=== PATIENT | male | born 1950 | race Caucasian/White ===

== ENCOUNTER 2017-12-03 11:05 | Inpatient (IN) ==
[2017-12-03] MEDS ORDERED: methylPREDNISolone 125 MG/2 ML VIAL IVP ONE (11:21)
[2017-12-03] MEDS ORDERED: Ipratropium/Albuterol Neb 3 ML IH ONE (11:21)
--- NOTE | 2017-12-03 11:27 | Emergency Department Note ---
Disposition Clinical Impression: Acute exacerbation of chronic obstructive airways disease, Hypercalcemia Disposition: Admitted As Inpatient Condition: Fair Referrals: Arvin Kang MD [Primary Care Provider] - Forms: ED Satisfaction Letter Time of Disposition: 14:18 SOB HPI - General Chief Complaint: ED Shortness of Breath/Dyspnea Stated Complaint: SHAHID Time Seen by Provider: 12/03/17 11:16 Source: patient Limitations: no limitations Nursing Notes Reviewed: Yes Vital Signs Reviewed: Yes - History of Present Illness 67-year-old with a history of lung cancer comes in with increasing shortness of breath. Patient also has generalized weakness and multiple falls over the weekend. I contacted the cancer Center who wanted to get a CT of his head and evaluated for shortness of breath. Concern for dehydration Pt Subjective Complaint: shortness of breath, cough Onset (ago): day(s) Context: recent illness Severity: moderate Consistency/Duration: constant Improves with: nothing Worsens with: exertion Known history of: COPD, other (Lung cancer) Associated symptoms: Reports: cough Treatment prior to arrival: none Cough Description: Involuntary Cough Frequency: Intermittent - Related Data Previous Rx's Medication Instructions Recorded Multivit-Min/Iron Fum/Folic AC 1 each PO DAILY #30 tablet 05/23/16 [Zpoqp-Sbsvdxl-Sbizcnlz Tablet] Famotidine [Pepcid] 40 mg PO HS #30 tablet 03/07/17 Magic Mouthwash [Magic Mouthwash 10 ml PO QID PRN #240 ml 03/14/17 BLM] Loperamide HCl [Imodium A-D] 2 mg PO Q8H PRN #90 tablet 05/29/17 Prochlorperazine Maleate 10 mg PO Q8HR PRN #90 tablet 05/30/17 [Compazine] Diaper,Brief,Adult, Disposable 1 each MC QID #1 pkg 06/21/17 [Depend Fit-Flex] Cane 1 each MC DAILY #1 each 07/12/17 DiphenhydraMINE [Benadryl] 25 mg PO HS #30 capsule 07/12/17 Albuterol Sulfate [Albuterol 1 puff IH BID PRN #1 inhaler 07/23/17 Inhaler] Ondansetron [Zofran] 8 mg PO Q8HR #60 tablet 09/18/17 Erlotinib HCl [Tarceva] 100 mg PO DAILY #30 tablet 09/28/17 Ascorbic Acid/Multivit-Min 1,000 mg PO AD PRN #30 effpowdpkt 10/11/17 [Emergen-C 1,000 mg Packet] GuaiFENesin ER [Mucinex] 600 mg PO BID #20 tbbp.12hr 10/26/17 ALPRAZolam [Xanax 1 MG Tablet] 2 mg PO BID PRN 30 Days #120 tablet 11/07/17 OxyCODONE Immed Rel [Roxicodone 10 10 mg PO TID 30 Days #90 tab 11/20/17 MG] Oxycodone HCl/Acetaminophen 1 each PO Q4H PRN 15 Days #90 11/21/17 [Percocet 10-325 mg Tablet] tablet Allergies Allergy/AdvReac Type Severity Reaction Status Date / Time codeine Allergy See Verified 12/03/17 11:11 Comments lorazepam [From Ativan] Allergy See Verified 12/03/17 11:11 Comments Constitutional: Denies: fever, chills, weakness, weight change Eyes: Denies: eye pain, eye discharge, vision change ENT ED: Denies: ear pain, throat pain, dental pain, hearing loss, epistaxis, congestion, dysphagia Cardiovascular: Denies: chest pain, palpitations, dyspnea on exertion, edema, syncope Respiratory: Reports: cough, dyspnea, wheezes. Denies: hemoptysis, stridor Gastrointestinal: Denies: abdominal pain, nausea, vomiting, diarrhea, constipation, hematemesis, melena, hematochezia Genitourinary: Denies: urgency, dysuria, frequency, hematuria Musculoskeletal: Denies: back pain, neck pain, arthralgia, myalgia Integumentary: Denies: rash, abrasion, lesions Neurological: Denies: headache, weakness, numbness, paresthesias, confusion, abnormal gait, vertigo Psychiatric: Denies: anxiety, depression, suicidal thoughts, homicidal thoughts , auditory hallucinations, visual hallucinations Endocrine: Denies: fatigue Hematological/Lymphatic: Denies: easy bleeding, easy bruising Allergic/Immunologic: Denies: facial swelling, urticaria Past Medical History - Past Medical History Medical history: Reports: cancer, COPD, coronary artery disease, hyperlipidemia , renal disease, other Surgical history: Reports: appendectomy, herniorrhaphy, other Psychiatric history: Reports: depression - Social History Smoking Status: Current every day smoker Smokeless Tobacco Status: No Alcohol use: Reports: none Drug use: Reports: none Physical Exam - General Limitations: no limitations General appearance: alert, in no apparent distress - Head Head exam: atraumatic, normocephalic, normal inspection - Eye Eye exam: Present: normal appearance, PERRL, EOMI - ENT ENT exam: normal exam, normal oropharynx, mucous membranes moist - Neck Neck exam: Present: normal inspection, full ROM, trachea midline - Chest Chest inspection: Present: normal inspection, symmetric chest wall rise - Respiratory Respiratory exam: Present: wheezes - Cardiovascular Cardiovascular exam: Present: tachycardia - Abdominal Exam Abdominal exam: Present: soft, Non-Tender. Absent: tenderness, distention, guarding, rebound, rigidity - Extremities Exam Extremities exam: Present: normal inspection, full ROM. Absent: tenderness, pedal edema - Expanded Lower Extremity Exam Neurovascular/Tendon exam: Absent: motor deficit, sensory deficit, tendon deficit Gait: observed and normal - Back Exam Back exam: Present: normal inspection, full ROM. Absent: tenderness - Neurological Exam Neurological exam: Present: alert, oriented X3 - Psychiatric Psychiatric exam: Present: normal affect, normal mood - Skin Skin exam: Present: warm, dry, intact, normal color Course - Reevaluation(s) Reevaluation #1: 67-year-old with a history lung cancer comes in with increasing shortness of breath and cough. Chest x-ray shows the mass. Patient will be admitted for COPD exacerbation. Also has not been eating we will give him some fluids. Time: 14:16 - Consultations Consultation #1: Discussed with Dr. Batista, admit. Time: 14:16 Vital Signs Temperature 97.9 F 12/03/17 11:09 Pulse Rate 110 12/03/17 11:09 Respiratory Rate 18 12/03/17 11:09 Blood Pressure 127/87 12/03/17 11:09 O2 Sat by Pulse Oximetry 97 12/03/17 11:09 Temperature 97.9 F 12/03/17 11:09 Pulse Rate 94 12/03/17 12:42 Respiratory Rate 18 12/03/17 12:42 Blood Pressure 133/98 12/03/17 12:42 O2 Sat by Pulse Oximetry 96 12/03/17 12:43 Oxygen Delivery Oxygen Delivery Room Air Shortness of Breath/Dyspnea - Lab Data Result diagrams: 12/03/17 11:59 03/12/18 11:59 Lab Results 12/03/17 12/03/17 12/03/17 Range/Units 11:59 11:59 11:59 WBC 4.3 (4.3-11.1) K/mcL RBC 2.73 L (4.19-5.50) M/mcL Hgb 8.3 L (12.9-16.9) g/dL Hct 27.2 L (37.5-50.1) % MCV 99.6 (83.0-100.0) fL MCH 30.4 (28.0-33.3) pg MCHC 30.5 L (31.6-35.5) g/dL RDW 15.6 H (11.5-14.5) % Plt Count 104 L (140-400) K/mcL MPV 10.2 (9.4-12.4) fL Immature Gran % 0.5 (0-4) % Seg Neutrophils % 86.2 % Lymphocytes % 11.0 % Monocytes % 1.9 % Eosinophils % 0.2 % Basophils % 0.2 % Neutrophils # 3.7 (1.6-8.9) K/mcL Lymphocytes # 0.5 L (0.6-4.6) K/mcL Monocytes # 0.1 (0.0-1.3) K/mcL Eosinophils # 0.0 (0.0-0.6) K/mcL Basophils # 0.0 (0.0-0.2) K/mcL Sodium 138 (136-145) mEq/L Potassium 3.6 (3.5-5.1) mEq/L Chloride 105 (98-107) mEq/L Carbon Dioxide 27 (23-29) mEq/L BUN 23 (8-23) mg/dL Creatinine 1.58 H (0.70-1.30) mg/dL Est GFR ( Amer) 53 L (> 60) Est GFR (Non-Af Amer) 44 L (> 60) BUN/Creatinine Ratio 15 (6-26) Glucose 126 H (70-105) mg/dL Calculated Osmolality 291 (280-300) Lactic Acid 1.0 (0.5-2.2) mmol/L Calcium 14.2 H* (8.6-10.3) mg/dL Troponin I 0.06 H* (< 0.04) ng/mL B-Natriuretic Peptide (Less than 100) pg/mL 12/03/17 Range/Units 11:59 WBC (4.3-11.1) K/mcL RBC (4.19-5.50) M/mcL Hgb (12.9-16.9) g/dL Hct (37.5-50.1) % MCV (83.0-100.0) fL MCH (28.0-33.3) pg MCHC (31.6-35.5) g/dL RDW (11.5-14.5) % Plt Count (140-400) K/mcL MPV (9.4-12.4) fL Immature Gran % (0-4) % Seg Neutrophils % % Lymphocytes % % Monocytes % % Eosinophils % % Basophils % % Neutrophils # (1.6-8.9) K/mcL Lymphocytes # (0.6-4.6) K/mcL Monocytes # (0.0-1.3) K/mcL Eosinophils # (0.0-0.6) K/mcL Basophils # (0.0-0.2) K/mcL Sodium (136-145) mEq/L Potassium (3.5-5.1) mEq/L Chloride (98-107) mEq/L Carbon Dioxide (23-29) mEq/L BUN (8-23) mg/dL Creatinine (0.70-1.30) mg/dL Est GFR ( Amer) (> 60) Est GFR (Non-Af Amer) (> 60) BUN/Creatinine Ratio (6-26) Glucose (70-105) mg/dL Calculated Osmolality (280-300) Lactic Acid (0.5-2.2) mmol/L Calcium (8.6-10.3) mg/dL Troponin I (< 0.04) ng/mL B-Natriuretic Peptide 146 H (Less than 100) pg/mL - EKG Data EKG attestation: Yes I reviewed and interpreted this EKG. EKG shows normal: Reports: sinus rhythm Rate: Reports: normal Rhythm: Reports: NSR [place]/QRS: Reports: normal When compared to previous EKG there are: no significant changes
[2017-12-03 12:32] LABS: Basophils % 0.2 %; Eosinophils % 0.2 %; Hematocrit 27.2 % (37.5-50.1); Hemoglobin 8.3 g/dL (12.9-16.9); Immature Granulocytes % 0.5 % (0-4); Lymphocytes # 0.5 K/mcL (0.6-4.6); Mean Corpuscular HGB Conc 30.5 g/dL (31.6-35.5); Mean Corpuscular Hemoglobin 30.4 pg (28.0-33.3); Mean Corpuscular Volume 99.6 fL (83.0-100.0); Mean Platelet Volume 10.2 fL (9.4-12.4); Monocytes # 0.1 K/mcL (0.0-1.3); Monocytes % 1.9 %; Neutrophils # 3.7 K/mcL (1.6-8.9); Platelet Count 104 K/mcL (140-400); Red Blood Count 2.73 M/mcL (4.19-5.50); Red Cell Distribution Width 15.6 % (11.5-14.5); Segmented Neutrophils % 86.2 %
[2017-12-03 12:56] LABS: Calcium 14.2 mg/dL (8.6-10.3); Potassium 3.6 mEq/L (3.5-5.1)
[2017-12-03 14:04] LABS: Troponin I 0.06 ng/mL (< 0.04)
--- NOTE | 2017-12-03 15:29 | Internal Med History&Physical ---
Date of Encounter: 12/03/17 Time of Encounter: 15:29 Assessment and Plan (1) CKD (chronic kidney disease) Current visit: Yes Status: Chronic Acute on chronic kidney injury likely due to dehydration Qualifiers: Chronic kidney disease stage: stage 2 (mild) Qualified Code(s): N18.2 - Chronic kidney disease, stage 2 (mild) (2) Anemia Current visit: Yes Status: Acute Chronic anemia Qualifiers: Anemia type: unspecified type Qualified Code(s): D64.9 - Anemia, unspecified (3) Bone metastases Current visit: No Status: Chronic [place] and prostate cancer with bone metastases resultant hypercalcemia (4) Hypercalcemia Current visit: Yes Status: Acute Likely due to bone metastases was continue IV hydration and consider consulting oncology for follow-up (5) Squamous cell carcinoma of right lung Current visit: No Status: Chronic Patient undergoing radiation (6) Acute exacerbation of chronic obstructive airways disease Current visit: Yes Status: Chronic Acute on chronic exacerbation of COPD we will place him breathing treatment and low-dose steroid Internal Medicine - H&P: HPI Chief complaint: copd exercebation Admitted From: Emergency Dept Plans for Post Hospital Care: Home History of present illness: Mr. Keita is a 67 year old male Patient with history of stage IV lung cancer, prior prostate cancer, smoking history, COPD, CTD, CAD, history of substance abuse in the past, Patient presented emergency room with increased shortness of breath generalized weakness and multiple falls over the weekend and poor by mouth intake evaluation consistent with COPD exacerbation , dehydration calcium was 14.2 patient be admitted for IV hydration , breathing treatment and follow- up calcium level . PT OT and dietitian consult Past Med Surg Social Fam HX - Past Medical History Medical history: cancer, COPD, coronary artery disease, hyperlipidemia, renal disease, other Psychiatric history: depression - Past Surgical History Surgical History: appendectomy, herniorrhaphy, other - Social History Smoking Status: Current every day smoker Smokeless Tobacco Status: No Alcohol use: none Drug use: none Internal Medicine - H&P: Meds Multivit-Min/Iron Fum/Folic AC [Blfvm-Funbhmn-Oyadsayl Tablet] 1 each PO DAILY # 30 tablet 05/23/16 [Rx] Famotidine [Pepcid] 40 mg PO HS #30 tablet 03/07/17 [Rx] Magic Mouthwash [Magic Mouthwash BLM] 10 ml PO QID PRN #240 ml 03/14/17 [Rx] Loperamide HCl [Imodium A-D] 2 mg PO Q8H PRN #90 tablet 05/29/17 [Rx] Prochlorperazine Maleate [Compazine] 10 mg PO Q8HR PRN #90 tablet 05/30/17 [Rx] Diaper,Brief,Adult, Disposable [Depend Fit-Flex] 1 each MC QID #1 pkg 06/21/17 [ Rx] Cane 1 each MC DAILY #1 each 07/12/17 [Rx] DiphenhydraMINE [Benadryl] 25 mg PO HS #30 capsule 07/12/17 [Rx] Albuterol Sulfate [Albuterol Inhaler] 1 puff IH BID PRN #1 inhaler 07/23/17 [Rx] Ondansetron [Zofran] 8 mg PO Q8HR #60 tablet 09/18/17 [Rx] Erlotinib HCl [Tarceva] 100 mg PO DAILY #30 tablet 09/28/17 [Rx] Ascorbic Acid/Multivit-Min [Emergen-C 1,000 mg Packet] 1,000 mg PO AD PRN #30 effpowdpkt 10/11/17 [Rx] GuaiFENesin ER [Mucinex] 600 mg PO BID #20 tbbp.12hr 10/26/17 [Rx] ALPRAZolam [Xanax 1 MG Tablet] 2 mg PO BID PRN 30 Days #120 tablet 11/07/17 [Rx] OxyCODONE Immed Rel [Roxicodone 10 MG] 10 mg PO TID 30 Days #90 tab 11/20/17 [Rx ] Oxycodone HCl/Acetaminophen [Percocet 10-325 mg Tablet] 1 each PO Q4H PRN 15 Days #90 tablet 11/21/17 [Rx] 3 Allergy/AdvReac Type Severity Reaction Status Date / Time codeine Allergy See Verified 12/03/17 11:11 Comments lorazepam [From Ativan] Allergy See Verified 12/03/17 11:11 Comments All Systems PM: A 10-system review of systems was performed and is negative for pertinent findings except as documented above in the HPI. - Constitutional Constitutional: fatigue, lethargy, weakness - EENT Eyes: no change in vision, no discharge, no pain, no photophobia Ears: no ear discharge, no ear pain, no tinnitus Nose, mouth and throat: no dysphagia, no nasal discharge, no neck pain, no sore throat - Cardiovascular Cardiovascular ROS IM: no chest pain, no diaphoresis, no dyspnea, no lightheadedness, no palpitations, no syncope - Respiratory Respiratory: cough, dyspnea on exertion, wheezing - Gastrointestinal Gastrointestinal: no abdominal pain, no diarrhea, no hematemesis, no hematochezia, no melena, no nausea, no vomiting - Musculoskeletal Musculoskeletal ROS IM: no numbness, no tingling - Constitutional Vitals: Temp Pulse Resp BP Pulse Ox 97.9 F 94 18 133/98 96 12/03/17 11:09 12/03/17 12:42 12/03/17 12:42 12/03/17 12:42 12/03/17 12:43 General appearance: Present: mild distress, underweight - Eye Eye exam: Present: PERRL, conjuntiva pink, sclera anicteric Pupils: Present: PERRL - Neck Neck exam general surgery: Present: supple, trachea midline. Absent: lymphadenopathy - Respiratory Respiratory exam: Present: prolonged expiratory phase, rhonchi, wheezes - Cardiovascular Cardiovascular exam: Present: RRR, +S1, +S2. Absent: diastolic murmur, gallop, rubs, systolic murmur - GI/Abdominal GI/Abdominal exam: Present: normal bowel sounds, soft, no peritoneal signs. Absent: distended, tenderness Internal Med - H&P Results - Labs CBC & Chem 7: 12/03/17 11:59 12/03/17 11:59 Labs: Short CBC 12/03/17 Range/Units 11:59 WBC 4.3 (4.3-11.1) K/mcL Hgb 8.3 L (12.9-16.9) g/dL Hct 27.2 L (37.5-50.1) % Plt Count 104 L (140-400) K/mcL Neutrophils # 3.7 (1.6-8.9) K/mcL BMP 12/03/17 11:59 Sodium 138 Potassium 3.6 Chloride 105 Carbon Dioxide 27 BUN 23 Creatinine 1.58 H Glucose 126 H Calcium 14.2 H* Cardiac Enzymes 12/03/17 Range/Units 11:59 Troponin I 0.06 H* (< 0.04) ng/mL - Impressions ITS Impressions Chest X-Ray 12/03/17 11:21 IMPRESSION: Small right pleural effusion with basilar atelectasis and/or consolidation, new from prior exam. Known right basilar cavitary lesion is poorly visualized. Stable appearance of known focal mass lesion at the left lung base medially, measuring approximately 3.5 cm. Emphysematous changes. D/ / Preet Otero MD / Preet Otero MD Interpreting Provider: Preet Otero MD
[2017-12-03] MEDS ORDERED: Naloxone 0.4 MG/ML INJ IVP PRN (15:35)
[2017-12-03] MEDS ORDERED: Ipratropium/Albuterol Neb 3 ML IH PRN (15:39)
[2017-12-03] MEDS ORDERED: Ipratropium/Albuterol Neb 3 ML ONE (16:23)
[2017-12-03] MEDS: Ipratropium/Albuterol Neb 3 ML IH SCH ×2 (18:07→19:58)
--- NOTE | 2017-12-03 20:45 | Electrocardiograph Report ---
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
[2017-12-03] MEDS: Famotidine 20 MG TABLET PO SCH (22:39)
[2017-12-03] MEDS: *HR* OxyCODONE Immed Rel 5 MG TABLET PO SCH (22:39)
[2017-12-03] MEDS: MethylPREDNISolone 40 MG/ML VIAL IVP SCH (22:40)
[2017-12-03] MEDS: 0.9 % Sodium Chloride 1,000 ML IVC SCH (22:47)
[2017-12-04] MEDS: Ipratropium/Albuterol Neb 3 ML IH SCH ×7 (00:05→23:53)
[2017-12-04] MEDS: *HR* Enoxaparin 40 MG/0.4 ML SYRINGE SQ SCH (05:49)
[2017-12-04] MEDS: MethylPREDNISolone 40 MG/ML VIAL IVP SCH ×3 (05:49→21:47)
[2017-12-04 06:12] LABS: Hematocrit 21.8 % (37.5-50.1); Mean Corpuscular HGB Conc 30.7 g/dL (31.6-35.5); Red Cell Distribution Width 15.3 % (11.5-14.5)
[2017-12-04 06:14] LABS: Hemoglobin 6.7 g/dL (12.9-16.9); Immature Platelets 4.5 % (1.1-6.1); Mean Corpuscular Hemoglobin 30.5 pg (28.0-33.3); Mean Corpuscular Volume 99.1 fL (83.0-100.0); Mean Platelet Volume 10.7 fL (9.4-12.4); Red Blood Count 2.2 M/mcL (4.19-5.50)
[2017-12-04 06:28] LABS: Albumin 2.9 g/dL (3.5-5.7); Albumin/Globulin Ratio 1.1 (1.1-2.2); Bilirubin,Total 0.4 mg/dL (0.3-1.0); Globulin 2.6 g/dL (2.4-3.5); Potassium 3.4 mEq/L (3.5-5.1); Total Protein 5.5 g/dL (6.4-8.9)
[2017-12-04] MEDS: Multivit/Ca/Min/Fe/FA 1 TAB TABLET PO SCH (08:20)
[2017-12-04] MEDS: Nicotine 21 MG PATCH.TD24 TD SCH (08:20)
[2017-12-04] MEDS: *HR* OxyCODONE Immed Rel 5 MG TABLET PO SCH ×3 (08:20→23:54)
[2017-12-04] MEDS: 0.9 % Sodium Chloride 1,000 ML IVC SCH ×3 (08:21→21:52)
[2017-12-04] MEDS: ALPRAZolam 1 MG TABLET PO PRN ×2 (08:23→17:28)
[2017-12-04 08:37] LABS: Troponin I 0.04 ng/mL (< 0.04)
[2017-12-04] MEDS: ERLOTINIB HCL 100 MG PO SCH (10:17)
[2017-12-04] MEDS: traMADol 50 MG TABLET PO PRN ×2 (11:02→21:59)
[2017-12-04] MEDS ORDERED: 0.9 % Sodium Chloride 250 ML ONE ×2 (12:49→16:49)
[2017-12-04 21:18] LABS: Hematocrit 29.3 % (37.5-50.1)
[2017-12-04 21:19] LABS: Hemoglobin 9.2 g/dL (12.9-16.9)
[2017-12-04] MEDS: Famotidine 20 MG TABLET PO SCH (21:53)
--- NOTE | 2017-12-04 23:50 | Internal Med Progress Note ---
Date of Encounter: 12/04/17 Time of Encounter: 23:48 - Assessment and plan (1) CKD (chronic kidney disease) Current Visit: Yes Status: Acute Assessment and plan: Acute on chronic kidney injury likely due to dehydration. Continue IVF. Recheck BMP in AM. Qualifiers: Chronic kidney disease stage: stage 2 (mild) Qualified Code(s): N18.2 - Chronic kidney disease, stage 2 (mild) (2) Anemia Current Visit: Yes Status: Acute Assessment and plan: Worsening. Hgb = 6.7 this AM. Will transfuse 2 units PRBC. Recheck CBC in AM. Qualifiers: Anemia type: unspecified type Qualified Code(s): D64.9 - Anemia, unspecified (3) Bone metastases Current Visit: Yes Status: Chronic Assessment and plan: Lung and prostate cancer with resultant hypercalcemia. Treat hypercalcemia as per below. Oncology consulted; appreciate input. (4) Hypercalcemia Current Visit: Yes Status: Acute Assessment and plan: Improving. Ca = 13.0. Continue IVF. Recheck calcium in AM. (5) Squamous cell carcinoma of right lung Current Visit: Yes Status: Chronic Assessment and plan: Oncology consulted; appreciate input. (6) Acute exacerbation of chronic obstructive airways disease Current Visit: Yes Status: Acute Assessment and plan: Continue steroids, supplemental O2 PRN, and nebulizer treatments. (7) Hypomagnesemia Current Visit: Yes Status: Acute Assessment and plan: Mag = 1.0. Give 2 g IV mag sulfate. Recheck mag in AM. (8) Hypokalemia Current Visit: Yes Status: Acute Assessment and plan: Mild. K = 3.4. Give 40 mEq KCl once. Recheck BMP in AM. - Time Spent With Patient 25 - 35 minutes - Subjective Interval history: Patient had no acute events overnight. He states that he is feeling better this AM. He denies chest pain or SOB. He denies fever or chills. Nursing staff states that he was somewhat disoriented this AM, but back to normal now. He wants to go home, and states that he will go AMA if he has to. I counselled him on his critical condition and need to stay here for treatment. He has no new complaints. - Constitutional Vitals: Temp Pulse Resp BP Pulse Ox 97.8 F 73 14 125/87 94 12/04/17 19:59 12/04/17 19:59 12/04/17 20:29 12/04/17 19:59 12/04/17 20:29 General appearance: Present: A&O X 3, no acute distress, underweight, answers questions appropriately. Absent: pleasant - Respiratory Respiratory exam: Present: CTAB, wheezes (Rare intermittent expiratory wheeze). Absent: accessory muscle use, rales, rhonchi Additional comments: Normal WOB - Cardiovascular Cardiovascular exam: Present: RRR, +S1, +S2. Absent: diastolic murmur, gallop, rubs, systolic murmur Additional comments: No BLE edema - GI/Abdominal GI/Abdominal exam: Present: normal bowel sounds, soft. Absent: distended, hepatomegaly, mass, splenomegaly, tenderness - Psychiatric Psychiatric exam: Present: normal affect, normal mood. Absent: anxious, depressed - Skin Skin exam: Present: dry, intact, warm. Absent: cyanosis, rash Internal Medicine: Result - Labs CBC & Chem 7: 12/04/17 21:05 12/04/17 05:12 Labs: Short CBC 12/04/17 12/04/17 Range/Units 05:12 21:05 WBC 2.4 L (4.3-11.1) K/mcL Hgb 6.7 L D 9.2 L D (12.9-16.9) g/dL Hct 21.8 L 29.3 L (37.5-50.1) % Plt Count 96 L (140-400) K/mcL BMP 12/04/17 05:12 Sodium 136 Potassium 3.4 L Chloride 107 Carbon Dioxide 23 BUN 29 H Creatinine 1.64 H Glucose 130 H Calcium 13.0 H* Cardiac Enzymes 12/04/17 12/04/17 Range/Units 05:12 21:05 Troponin I 0.04 H* 0.03 (< 0.04) ng/mL Liver Function 12/04/17 Range/Units 05:12 Total Bilirubin 0.4 (0.3-1.0) mg/dL AST 15 (13-39) Units/L ALT 11 (7-52) Units/L Alkaline Phosphatase 82 (34-104) Units/L Albumin 2.9 L (3.5-5.7) g/dL Consult Discharge Plan - Plan Referrals: Arvin Kang MD [Primary Care Provider] -
[2017-12-05] MEDS: Ipratropium/Albuterol Neb 3 ML IH SCH ×6 (03:55→23:05)
[2017-12-05 04:40] LABS: Hemoglobin 8.1 g/dL (12.9-16.9); Mean Corpuscular Hemoglobin 30.2 pg (28.0-33.3); Mean Platelet Volume 10.2 fL (9.4-12.4); Red Blood Count 2.68 M/mcL (4.19-5.50); Red Cell Distribution Width 16.5 % (11.5-14.5)
[2017-12-05 04:42] LABS: Hematocrit 25.4 % (37.5-50.1); Immature Granulocytes % 0.5 % (0-4); Immature Platelets 3.9 % (1.1-6.1); Lymphocytes # 0.2 K/mcL (0.6-4.6); Lymphocytes % 3.9 %; Mean Corpuscular HGB Conc 31.9 g/dL (31.6-35.5); Mean Corpuscular Volume 94.8 fL (83.0-100.0); Monocytes # 0.1 K/mcL (0.0-1.3); Monocytes % 3.1 %; Neutrophils # 3.6 K/mcL (1.6-8.9); Segmented Neutrophils % 92.5 %
[2017-12-05 04:45] LABS: Platelet Count 97 K/mcL (140-400)
[2017-12-05 04:59] LABS: Calcium 11.4 mg/dL (8.6-10.3); Potassium 3.7 mEq/L (3.5-5.1)
[2017-12-05 05:16] LABS: Platelet Estimate Decreased (Normal)
[2017-12-05] MEDS: MethylPREDNISolone 40 MG/ML VIAL IVP SCH ×3 (05:59→23:57)
[2017-12-05] MEDS: *HR* Enoxaparin 40 MG/0.4 ML SYRINGE SQ SCH (05:59)
[2017-12-05] MEDS: Multivit/Ca/Min/Fe/FA 1 TAB TABLET PO SCH (08:18)
[2017-12-05] MEDS: *HR* OxyCODONE Immed Rel 5 MG TABLET PO SCH ×3 (08:21→22:50)
[2017-12-05] MEDS: Nicotine 21 MG PATCH.TD24 TD SCH (08:21)
[2017-12-05] MEDS: ERLOTINIB HCL 100 MG PO SCH (08:21)
--- NOTE | 2017-12-05 13:51 | Oncology Inp Progress Note ---
Date of Encounter: 12/05/17 Time of Encounter: 12:00 (1) Squamous cell carcinoma of right lung Current Visit: Yes Status: Chronic Assessment and plan: Metastatic squamous cell carcinoma, with increasing lung masses, rib lesion status post multiple chemotherapy regimen, immunotherapy, palliative radiation and recently erlotinib for palliation with refractory hypercalcemia, status post Zometa and hydration steroids with calcium trending down. Renal insufficiency improving patient mental status is getting better. We had a detailed discussion with family present bedside about his overall prognosis. Patient and family wants to meet with hospice/palliative care team and are concerned about his quality of life, pain control. Will place consultation for palliative care team to evaluate patient and brain imaging to r/o intracranial mets. Oncology: Subj Interval history: Mental status improved. Family bedside - Constitutional Vitals: Vital Signs Temp Pulse Resp BP Pulse Ox 12/05/17 11:31 18 97 12/05/17 03:56 18 98 12/05/17 03:45 98.6 F 80 18 110/71 98 12/05/17 00:06 96.5 F L 94 18 116/80 97 12/04/17 23:53 22 12/04/17 20:29 14 94 12/04/17 19:59 97.8 F 73 16 125/87 99 12/04/17 17:14 97.4 F L 90 18 114/68 98 12/04/17 15:40 97.1 F L 84 18 121/78 99 12/04/17 15:24 16 94 Intake and Output 12/04/17 12/05/17 12/05/17 23:59 07:59 15:59 Intake Total 1900 / 1900 120 / 120 520 / 520 Output Total 250 / 250 375 / 375 Balance 1650 / 1650 -255 / -255 520 / 520 Intake: IV Fluids 1000 / 1000 0.9 % Sodium Chloride 1,000 ML 1000 / 1000 @ 100 mls/hr IVC .Q10H [facility] Rx#: [id number] Oral 0 / 0 120 / 120 520 / 520 Blood Product 900 / 900 Rbcs Leuko Poor As-1 Unit 600 / 600 [id number] Rbcs Leuko Poor As-1 Unit 300 / 300 [id number] Output: Urine 250 / 250 375 / 375 Other: Meal Breakfast Percent of Meal Consumed 100% Stool Size Small Stool Consistency soft formed Stool Color Brown Yellow # Voids 0 1 # Bowel Movements 1 Weight 67.5 kg Blood Glucose* 119 Patient Weight 12/05/17 23:59 Weight 67.5 kg General appearance: mild distress - Head Head exam: Present: atraumatic, normal inspection - Eye Eye exam: Present: sclera anicteric - ENT ENT exam: Present: mucous membranes moist - Neck Neck exam: Present: full ROM - Respiratory Respiratory exam: Present: CTAB - Cardiovascular Cardiovascular exam: Present: +S1, +S2 - GI/Abdominal GI/Abdominal exam: Present: normal bowel sounds, soft - Extremities Exam Extremities exam: Present: normal inspection - Neurological Exam Neurological exam: Present: alert, CN II-XII intact, oriented X3 - Psychiatric Psychiatric exam: Present: normal affect Oncology: Obj Data - Labs CBC & Chem 7: 12/05/17 03:46 12/05/17 03:46 Labs: Laboratory Results - last 24 hr 12/04/17 12/04/17 12/04/17 10:35 21:05 21:05 WBC RBC Hgb 9.2 L D Hct 29.3 L MCV MCH MCHC RDW Plt Count MPV Immature Gran % Seg Neutrophils % Lymphocytes % Monocytes % Eosinophils % Basophils % Neutrophils # Lymphocytes # Monocytes # Eosinophils # Basophils # Platelet Estimate Immature Plt Fraction Sodium Potassium Chloride Carbon Dioxide BUN Creatinine Est GFR ( Amer) Est GFR (Non-Af Amer) BUN/Creatinine Ratio Glucose POC Glucose Calculated Osmolality Calcium Magnesium Troponin I 0.03 Blood Type O POSITIVE Antibody Screen NEGATIVE Crossmatch See Detail 12/05/17 12/05/17 12/05/17 03:45 03:46 03:46 WBC 3.9 L D RBC 2.68 L Hgb 8.1 L Hct 25.4 L MCV 94.8 MCH 30.2 MCHC 31.9 RDW 16.5 H Plt Count 97 L MPV 10.2 Immature Gran % 0.5 Seg Neutrophils % 92.5 Lymphocytes % 3.9 Monocytes % 3.1 Eosinophils % 0.0 Basophils % 0.0 Neutrophils # 3.6 Lymphocytes # 0.2 L Monocytes # 0.1 Eosinophils # 0.0 Basophils # 0.0 Platelet Estimate Decreased L Immature Plt Fraction 3.9 Sodium 137 Potassium 3.7 Chloride 108 H Carbon Dioxide 24 BUN 29 H Creatinine 1.65 H Est GFR ( Amer) 51 L Est GFR (Non-Af Amer) 42 L BUN/Creatinine Ratio 18 Glucose 126 H POC Glucose 119 H Calculated Osmolality 291 Calcium 11.4 H Magnesium Troponin I Blood Type Antibody Screen Crossmatch 12/05/17 03:46 WBC RBC Hgb Hct MCV MCH MCHC RDW Plt Count MPV Immature Gran % Seg Neutrophils % Lymphocytes % Monocytes % Eosinophils % Basophils % Neutrophils # Lymphocytes # Monocytes # Eosinophils # Basophils # Platelet Estimate Immature Plt Fraction Sodium Potassium Chloride Carbon Dioxide BUN Creatinine Est GFR ( Amer) Est GFR (Non-Af Amer) BUN/Creatinine Ratio Glucose POC Glucose Calculated Osmolality Calcium Magnesium 1.5 L Troponin I Blood Type Antibody Screen Crossmatch Consult Discharge Plan - Plan Referrals: Arvin Kang MD [Primary Care Provider] -
[2017-12-05 13:55] LABS: VBG HCO3 24 mEq/L (21-27); VBG Ionized Calcium 1.57 mmol/L (1.15-1.35); VBG PCO2 53 mmHg (41-51); VBG PH 7.27 pH Units (7.32-7.42); VBG PO2 53 mmHg (25-50)
--- NOTE | 2017-12-05 17:02 | Palliative - Consult Note ---
Date of Encounter: 12/05/17 Time of Encounter: 17:00 - Assessment and Plan (1) Cancer associated pain Current Visit: Yes Status: Acute Assessment and plan: Continue scheduled Oxycodone every 8 hours. Depending on discharge plan - if he goes to monitored environment, may discuss Extended release Morphine and utilize Oxycodone for breakthrough pain. (2) Goals of care, counseling/discussion Current Visit: Yes Status: Acute Assessment and plan: Patient with many family members present, Sisters (Vilma) LIDYA (Ray) Nieces ( Debbie, Elsy), Nephew (Rob) discussed goals of care. Patient has been very fixated on going to [place] to see other family members, but r/t probation , unable to cross state lines. 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 Code status discussed at length - pt signed DNR form as DNR/DNI. He had previously been agitated, but remained calm through conversations. He is willing to do Power of Rn Hemodialysis Charge as well. His brother Bill not present today but will be here tomorrow to further discusses. It is felt by most family, [facility] would be best for pt POA. Will f/u in am. (3) Squamous cell carcinoma of right lung Current Visit: Yes Status: Chronic Assessment and plan: Oncology consult noted and appreciated. (4) Bone metastases Current Visit: Yes Status: Chronic Palliative-CN HPI - Data of Consult Requesting Physician: Brennon Grier Primary Care Provider: Arvin Kang MD - Consult Narrative History of present illness: Mr. Keita is a 67 year old male who presented to the emergency room with increased shortness of breath, generalized weakness, and falls. He has history of stage IV lung cancer, prostate cancer, tobacco abuse, COPD, CAD, Was found to be dehydrated and did receive IV fluids. He states he feels better than on admission. Oncology was consulted and did speak with pt today. Cancer appears to be progressing despite treatments. CT head has been ordered to rule out brain metastasis. Patient reports he lives with friends, family states that they utilize his money to support their "habits". States they do not help with his care. Palliative care was consulted to assist with symptom management as well as goals of care discussion. Upon my visit, he appears to be resting comfortably, with multiple family members at bedside. They are distressed as pt is demanding to go home, states he has "things to take care of", and will not go to ECF until he can go home first. Pain currently 8. Patient became agitated with pain assessment questions and states "what does it matter, it's everywhere". M CC: Brennon Grier Past Med Surg Social Fam HX - Past Medical History Medical history: cancer, COPD, coronary artery disease, hyperlipidemia, renal disease, other Psychiatric history: depression - Past Surgical History Surgical History: appendectomy, herniorrhaphy, other - Social History Smoking Status: Current every day smoker Smokeless Tobacco Status: No Alcohol use: none Drug use: none - Family History Mother Hx Family Cardiac Disorders: Yes (MS, CHF) Hx Family Respiratory Disorders: No Hx Family Cancer: No Hx Family Endocrine Disorder: Yes (DM) Medications and Allergies Multivit-Min/Iron Fum/Folic AC [Cajev-Faxhrlv-Hgrhhacz Tablet] 1 each PO DAILY # 30 tablet 05/23/16 [Rx] Famotidine [Pepcid] 40 mg PO HS #30 tablet 03/07/17 [Rx] Magic Mouthwash [Magic Mouthwash BLM] 10 ml PO QID PRN #240 ml 03/14/17 [Rx] Loperamide HCl [Imodium A-D] 2 mg PO Q8H PRN #90 tablet 05/29/17 [Rx] Prochlorperazine Maleate [Compazine] 10 mg PO Q8HR PRN #90 tablet 05/30/17 [Rx] Diaper,Brief,Adult, Disposable [Depend Fit-Flex] 1 each MC QID #1 pkg 06/21/17 [ Rx] Cane 1 each MC DAILY #1 each 07/12/17 [Rx] DiphenhydraMINE [Benadryl] 25 mg PO HS #30 capsule 07/12/17 [Rx] Albuterol Sulfate [Albuterol Inhaler] 1 puff IH BID PRN #1 inhaler 07/23/17 [Rx] Ondansetron [Zofran] 8 mg PO Q8HR #60 tablet 09/18/17 [Rx] Erlotinib HCl [Tarceva] 100 mg PO DAILY #30 tablet 09/28/17 [Rx] Ascorbic Acid/Multivit-Min [Emergen-C 1,000 mg Packet] 1,000 mg PO AD PRN #30 effpowdpkt 10/11/17 [Rx] GuaiFENesin ER [Mucinex] 600 mg PO BID #20 tbbp.12hr 10/26/17 [Rx] ALPRAZolam [Xanax 1 MG Tablet] 2 mg PO BID PRN 30 Days #120 tablet 11/07/17 [Rx] OxyCODONE Immed Rel [Roxicodone 10 MG] 10 mg PO TID 30 Days #90 tab 11/20/17 [Rx ] Oxycodone HCl/Acetaminophen [Percocet 10-325 mg Tablet] 1 each PO Q4H PRN 15 Days #90 tablet 11/21/17 [Rx] 3 Allergy/AdvReac Type Severity Reaction Status Date / Time codeine Allergy See Verified 12/03/17 11:11 Comments lorazepam [From Ativan] Allergy See Verified 12/03/17 11:11 Comments All systems: reviewed and no additional remarkable complaints except as stated ( shortness of breath, moist cough, weakness) Palliative Care-Exam - Constitutional Vitals: Temp Pulse Resp BP Pulse Ox 98.6 F 80 18 110/71 97 12/05/17 03:45 12/05/17 03:45 12/05/17 16:30 12/05/17 03:45 12/05/17 16:30 General appearance: Present: mild distress - Head Head Exam: Present: normal inspection, normocephalic - Eye Eye exam: Present: normal appearance, PERRL - Respiratory Respiratory exam: Present: decreased breath sounds Additional comments: Expiratory wheezes noted posteriorally - Cardiovascular Cardiovascular exam: Present: +S1, +S2 - GI/Abdominal Exam GI/Abdominal exam: Present: normal bowel sounds, soft - Neurological Exam Neurological exam: Present: alert, oriented X3, strengths equal and symetr throughout - Skin Skin exam: Present: dry, pallor, warm Internal Medicine - CN: Reslt - Labs CBC & Chem 7: 12/05/17 03:46 12/05/17 03:46 Labs: Short CBC 12/04/17 12/05/17 Range/Units 21:05 03:46 WBC 3.9 L D (4.3-11.1) K/mcL Hgb 9.2 L D 8.1 L (12.9-16.9) g/dL Hct 29.3 L 25.4 L (37.5-50.1) % Plt Count 97 L (140-400) K/mcL Neutrophils # 3.6 (1.6-8.9) K/mcL BMP 12/05/17 03:46 Sodium 137 Potassium 3.7 Chloride 108 H Carbon Dioxide 24 BUN 29 H Creatinine 1.65 H Glucose 126 H Calcium 11.4 H Cardiac Enzymes 12/04/17 Range/Units 21:05 Troponin I 0.03 (< 0.04) ng/mL Consult Discharge Plan - Plan Referrals: Arvin Kang MD [Primary Care Provider] - Palliative Quality Palliative Quality: Screen for Code Status: Yes, Screen for Goals of Care: Yes, Screen for Pain: Yes, If Pain Regimen Started, Initiate Bowel Regimen: NA, Screen for Nausea/Vomitting: Yes Code Status: 12/05/17 16:00 DNR [Resuscitation Status: Active] [RES] Routine Comment: Resuscitation Status: [id number]
--- NOTE | 2017-12-05 21:50 | Internal Med Progress Note ---
Date of Encounter: 12/05/17 Time of Encounter: 21:48 - Assessment and plan (1) CKD (chronic kidney disease) Current Visit: Yes Status: Acute Assessment and plan: Stable. Cr = 1.65. Acute on chronic kidney injury likely due to dehydration. Continue IVF. Recheck BMP in AM. Qualifiers: Chronic kidney disease stage: stage 2 (mild) Qualified Code(s): N18.2 - Chronic kidney disease, stage 2 (mild) (2) Anemia Current Visit: Yes Status: Chronic Assessment and plan: Improved post-transfusion of 2 units PRBCs yesterday, but Hgb down again this AM to 8.1. Obtain hemoccult. Recheck CBC in AM. Qualifiers: Anemia type: unspecified type Qualified Code(s): D64.9 - Anemia, unspecified (3) Squamous cell carcinoma of right lung Current Visit: Yes Status: Chronic Assessment and plan: Oncology consulted; appreciate input. Will follow their recommendations. May benefit from palliative consult if he is cooperative and agreeable. (4) Bone metastases Current Visit: Yes Status: Chronic Assessment and plan: Lung and prostate cancer with resultant hypercalcemia. Treat hypercalcemia as per below. Oncology consulted; appreciate input. (5) Acute exacerbation of chronic obstructive airways disease Current Visit: Yes Status: Acute Assessment and plan: Respiratory status improved. Still on supplemental O2 2L by NC. Continue steroids, supplemental O2 PRN, and nebulizer treatments. (6) Hypercalcemia Current Visit: Yes Status: Acute Assessment and plan: Improving. Ca = 11.4. Continue IVF. Recheck calcium in AM. (7) Hypokalemia Current Visit: Yes Status: Resolved Assessment and plan: Resolved. K = 3.7. Recheck BMP in AM. (8) Hypomagnesemia Current Visit: Yes Status: Acute Assessment and plan: Improved. Mag = 1.5. Give 1 g IV mag sulfate once. Recheck mag in AM. - Time Spent With Patient Greater than 35 minutes - Subjective Interval history: Patient had no acute events overnight. He is feeling better this AM and wanting to go home. He is threatening to leave, stating that he wants to go AMA. He needs to see family. Family not willing to take him. He states will walk 15 miles to family's house if he has to. I spent 30 minutes with patient discussing importance of staying for treatment, and the dangers of leaving AMA. He has calmed down some, but states that he still wants to go see family. He denies chest pain or SOB. He denies fever or chills. He is now of sound mind again, and alert and oriented x 3. He has no new complaints. - Constitutional Vitals: Temp Pulse Resp BP Pulse Ox 98.8 F 115 16 127/92 90 12/05/17 20:43 12/05/17 20:43 12/05/17 20:43 12/05/17 20:43 12/05/17 20:43 General appearance: Present: A&O X 3, no acute distress, underweight, answers questions appropriately. Absent: pleasant - Respiratory Respiratory exam: Present: CTAB. Absent: accessory muscle use, rales, rhonchi, wheezes Additional comments: Normal WOB - Cardiovascular Cardiovascular exam: Present: RRR, +S1, +S2. Absent: diastolic murmur, gallop, rubs, systolic murmur Additional comments: No BLE edema - GI/Abdominal GI/Abdominal exam: Present: normal bowel sounds, soft. Absent: distended, hepatomegaly, mass, splenomegaly, tenderness - Psychiatric Psychiatric exam: Present: agitated. Absent: suicidal ideation - Skin Skin exam: Present: dry, intact, warm. Absent: cyanosis, rash Internal Medicine: Result - Labs CBC & Chem 7: 12/05/17 03:46 12/05/17 03:46 Labs: Short CBC 12/05/17 Range/Units 03:46 WBC 3.9 L D (4.3-11.1) K/mcL Hgb 8.1 L (12.9-16.9) g/dL Hct 25.4 L (37.5-50.1) % Plt Count 97 L (140-400) K/mcL Neutrophils # 3.6 (1.6-8.9) K/mcL BMP 12/05/17 03:46 Sodium 137 Potassium 3.7 Chloride 108 H Carbon Dioxide 24 BUN 29 H Creatinine 1.65 H Glucose 126 H Calcium 11.4 H - VTE Reasons for not Prescribing Prophylaxis: Medical contraindication (Anemia, possible bleed.) Consult Discharge Plan - Plan Referrals: Arvin Kang MD [Primary Care Provider] -
[2017-12-05] MEDS: Famotidine 20 MG TABLET PO SCH (22:50)
[2017-12-06] MEDS: Ipratropium/Albuterol Neb 3 ML IH SCH ×4 (03:41→15:20)
[2017-12-06] MEDS: traMADol 50 MG TABLET PO PRN (05:21)
[2017-12-06] MEDS: MethylPREDNISolone 40 MG/ML VIAL IVP SCH (05:21)
[2017-12-06] MEDS: *HR* Enoxaparin 40 MG/0.4 ML SYRINGE SQ SCH (05:21)
[2017-12-06] MEDS: 0.9 % Sodium Chloride 1,000 ML IVC SCH (05:55)
[2017-12-06 06:23] LABS: Mean Corpuscular HGB Conc 31.7 g/dL (31.6-35.5)
[2017-12-06 06:25] LABS: Hematocrit 28.4 % (37.5-50.1); Immature Granulocytes % 1.1 % (0-4); Immature Platelets 4.2 % (1.1-6.1); Lymphocytes # 0.3 K/mcL (0.6-4.6); Lymphocytes % 5.6 %; Mean Corpuscular Hemoglobin 30.4 pg (28.0-33.3); Mean Corpuscular Volume 95.9 fL (83.0-100.0); Mean Platelet Volume 10.2 fL (9.4-12.4); Monocytes # 0.2 K/mcL (0.0-1.3); Neutrophils # 3.9 K/mcL (1.6-8.9); Platelet Count 103 K/mcL (140-400); Red Blood Count 2.96 M/mcL (4.19-5.50); Red Cell Distribution Width 16.7 % (11.5-14.5); Segmented Neutrophils % 88.3 %
[2017-12-06] MEDS: *HR* OxyCODONE Immed Rel 5 MG TABLET PO SCH ×3 (07:28→17:29)
[2017-12-06] MEDS: Nicotine 21 MG PATCH.TD24 TD SCH (07:28)
[2017-12-06] MEDS: Multivit/Ca/Min/Fe/FA 1 TAB TABLET PO SCH (07:28)
[2017-12-06 09:24] LABS: Calcium 10.3 mg/dL (8.6-10.3); Magnesium 1.7 mg/dL (1.6-2.6); Potassium 4.3 mEq/L (3.5-5.1)
[2017-12-06 09:53] LABS: Calcium 10.5 mg/dL (8.6-10.3); Magnesium 1.6 mg/dL (1.6-2.6)
[2017-12-06 14:49] VITALS: BP 121/86
--- NOTE | 2017-12-06 15:40 | Discharge Summary ---
- NOTES TO OUTPATIENT PROVIDER Notes to Outpatient Provider: Will need repeat CMP, CBC, magnesium, and calcium checked in 1 week at SNF. Follow up to be determined at time of discharge from SNF. Orders not resulted at time of discharge: Pending orders 12/07/17 04:00 Basic Metabolic Panel AM 0400 Calcium AM 0400 Complete Blood Count [HEME] AM 0400 Magnesium AM 0400 Date of Encounter: 12/06/17 Time of Encounter: 15:38 - Discharge Diagnosis (1) Acute exacerbation of chronic obstructive airways disease Priority: Primary Status: Acute (2) CKD (chronic kidney disease) Priority: Secondary Status: Chronic Qualifiers: Chronic kidney disease stage: stage 2 (mild) Qualified Code(s): N18.2 - Chronic kidney disease, stage 2 (mild) (3) Anemia Priority: Secondary Status: Chronic Qualifiers: Anemia type: unspecified type Qualified Code(s): D64.9 - Anemia, unspecified (4) Squamous cell carcinoma of right lung Priority: Secondary Status: Chronic (5) Bone metastases Priority: Secondary Status: Chronic (6) Hypercalcemia Priority: Secondary Status: Resolved (7) Hypokalemia Priority: Secondary Status: Resolved (8) Hypomagnesemia Priority: Secondary Status: Resolved Hospital course: Mr. Keita is a 67 year old male with PMH of lung/prostate cancer with metastatis to bones admitted for acute exacerbation of COPD and hypercalcemia. He was admitted to general medical floor and placed on telemetry. He was placed on supplemental O2, scheduled nebs, and IV steroids. He was continued on IVF after admission to help with hypercalcemia and acute on chronic kidney disease. He received 2 units PRBCs for worsening anemia. Hemoglobin stabilized after transfusion. Hypercalcemia, hypokalemia, and hypomagnesemia normalized on day of discharge. Creatinine came back down to baseline on day of discharge. Oncology and palliative care were consulted and recommended SNF placement and optimization of pain medication. He also agreed to be changed to DNR/DNI. He has been accepted at [facility]. He will be discharged there with prednisone taper and continuation of current home medications. Follow up needs will be determined at time of discharge from SNF. Patient has met maximum benefit of this hospitalization and will be discharged to [facility] in stable condition. Discharge discussed with: patient, family, nurse, case management, other ( Pharmacist) - Time Spent with Patient Total time spent providing and/or coordinating discharge services: Greater than 30 minutes - Discharge Medications Prescriptions: predniSONE [PredniSONE] 10 mg PO BIDWM 15 Days #54 tablet Home Medications: RX: Multivit-Min/Iron Fum/Folic AC [Sckri-Xxqpisd-Nqxsqgao Tablet] 1 each PO DAILY #30 tablet 05/23/16 [Rx] RX: Famotidine [Pepcid] 40 mg PO HS #30 tablet 03/07/17 [Rx] RX: Magic Mouthwash [Magic Mouthwash BLM] 10 ml PO QID PRN #240 ml 03/14/17 [Rx] RX: Loperamide HCl [Imodium A-D] 2 mg PO Q8H PRN #90 tablet 05/29/17 [Rx] RX: Prochlorperazine Maleate [Compazine] 10 mg PO Q8HR PRN #90 tablet 05/30/17 [ Rx] RX: Diaper,Brief,Adult, Disposable [Depend Fit-Flex] 1 each MC QID #1 pkg [Rx] RX: Cane 1 each MC DAILY #1 each 07/12/17 [Rx] RX: DiphenhydraMINE [Benadryl] 25 mg PO HS #30 capsule 07/12/17 [Rx] RX: Albuterol Sulfate [Albuterol Inhaler] 1 puff IH BID PRN #1 inhaler 07/23/17 [Rx] RX: Ondansetron [Zofran] 8 mg PO Q8HR #60 tablet 09/18/17 [Rx] RX: Erlotinib HCl [Tarceva] 100 mg PO DAILY #30 tablet 09/28/17 [Rx] RX: Ascorbic Acid/Multivit-Min [Emergen-C 1,000 mg Packet] 1,000 mg PO AD PRN # 30 effpowdpkt 10/11/17 [Rx] RX: GuaiFENesin ER [Mucinex] 600 mg PO BID #20 tbbp.12hr 10/26/17 [Rx] RX: ALPRAZolam [Xanax 1 MG Tablet] 2 mg PO BID PRN 30 Days #120 tablet 11/07/17 [Rx] RX: OxyCODONE Immed Rel [Roxicodone 10 MG] 10 mg PO TID 30 Days #90 tab [Rx] RX: Oxycodone HCl/Acetaminophen [Percocet 10-325 mg Tablet] 1 each PO Q4H PRN 15 Days #90 tablet 11/21/17 [Rx] predniSONE [PredniSONE] 10 mg PO BIDWM 15 Days #54 tablet 12/06/17 [Rx] Allergies/Adverse Reactions: 3 Allergy/AdvReac Type Severity Reaction Status Date / Time codeine Allergy See Verified 12/03/17 11:11 Comments lorazepam [From Ativan] Allergy See Verified 12/03/17 11:11 Comments Date of admission: 12/03/17 17:24 Primary care physician: Arvin Kang MD Consults: 12/04/17 00:38 Consult to Nutrition [CONS] Routine Comment: Consulting Provider: NUTRITION Reason for Dietary Consult: MST Score Consult to Farm Service Adviser [CONS] Routine Reason for SW Consult: Will likely need DC'ed with home health 12/05/17 14:29 Consult to Palliative Care [CONS] Routine Comment: Consulting Provider: Palliative Care Jaylyn Reason for Consult: Progressing metastatic lung cancer, fmaily wishing to discuss options for hospice, goals of care, code status Call Completed: Yes Discharging clinician: Denny Beyer Anticipated date of discharge: 12/06/17 - Constitutional Vitals: Temp Pulse Resp BP Pulse Ox 98.0 F 101 20 121/86 95 12/06/17 14:47 12/06/17 14:47 12/06/17 15:24 12/06/17 14:47 12/06/17 15:24 General appearance: Present: cachectic, A&O X 3, pleasant, no acute distress, answers questions appropriately - Respiratory Respiratory exam: Present: CTAB. Absent: accessory muscle use, rales, rhonchi, wheezes Additional comments: Normal WOB - Cardiovascular Cardiovascular exam: Present: RRR, +S1, +S2. Absent: diastolic murmur, gallop, rubs, systolic murmur Additional comments: No BLE edema - GI/Abdominal GI/Abdominal exam: Present: normal bowel sounds, soft. Absent: distended, hepatomegaly, mass, splenomegaly, tenderness - Psychiatric Psychiatric exam: Present: normal affect, normal mood. Absent: anxious, depressed - Skin Skin exam: Present: dry, intact, warm. Absent: cyanosis, rash - Patient Status Disposition: Transfer SNF Condition: Fair Overall status at discharge: patient is progressing back to baseline - Discharge Instructions Instructions: Lung Cancer (DC), Malnutrition (DC), Chronic Obstructive Pulmonary Disease (DC), Anemia (GEN) Follow Up With: Arvin Kang MD [Primary Care Provider] - Additional Instructions: Discharge to [facility]. Will need repeat CMP, CBC, magnesium, and calcium checked in 1 week at SNF. Follow up to be determined at time of discharge from SNF. - Diet and Activity Activity: as per physical therapy Diet: other (Renal) - VTE Reasons for not Prescribing Prophylaxis: Medical contraindication (Anemia, possible bleed.)
--- NOTE | 2017-12-06 15:59 | Physician Discharge Referral ---
ExtendedCare Referral Info Transfer To: [facility] [place] Institutional Level of Care: Skilled - Diagnosis (1) Acute exacerbation of chronic obstructive airways disease Priority: Primary Status: Acute (2) CKD (chronic kidney disease) Priority: Secondary Status: Chronic (3) Anemia Priority: Secondary Status: Chronic (4) Squamous cell carcinoma of right lung Priority: Secondary Status: Chronic (5) Bone metastases Priority: Secondary Status: Chronic (6) Hypercalcemia Priority: Secondary Status: Resolved (7) Hypokalemia Priority: Secondary Status: Resolved (8) Hypomagnesemia Priority: Secondary Status: Resolved Expected Duration of Placement: Indefinitely Prognosis: Poor Aware of Diagnosis: Patient, Family Aware of Prognosis: Patient, Family - Transfer Medications Prescriptions: predniSONE [PredniSONE] 10 mg PO BIDWM 15 Days #54 tablet Home Medications: Multivit-Min/Iron Fum/Folic AC [Rualy-Bfvxgwa-Fongwolk Tablet] 1 each PO DAILY # 30 tablet 05/23/16 [Rx] Famotidine [Pepcid] 40 mg PO HS #30 tablet 03/07/17 [Rx] Magic Mouthwash [Magic Mouthwash BLM] 10 ml PO QID PRN #240 ml 03/14/17 [Rx] Loperamide HCl [Imodium A-D] 2 mg PO Q8H PRN #90 tablet 05/29/17 [Rx] Prochlorperazine Maleate [Compazine] 10 mg PO Q8HR PRN #90 tablet 05/30/17 [Rx] Diaper,Brief,Adult, Disposable [Depend Fit-Flex] 1 each MC QID #1 pkg 06/21/17 [ Rx] Cane 1 each MC DAILY #1 each 07/12/17 [Rx] DiphenhydraMINE [Benadryl] 25 mg PO HS #30 capsule 07/12/17 [Rx] Albuterol Sulfate [Albuterol Inhaler] 1 puff IH BID PRN #1 inhaler 07/23/17 [Rx] Ondansetron [Zofran] 8 mg PO Q8HR #60 tablet 09/18/17 [Rx] Erlotinib HCl [Tarceva] 100 mg PO DAILY #30 tablet 09/28/17 [Rx] Ascorbic Acid/Multivit-Min [Emergen-C 1,000 mg Packet] 1,000 mg PO AD PRN #30 effpowdpkt 10/11/17 [Rx] GuaiFENesin ER [Mucinex] 600 mg PO BID #20 tbbp.12hr 10/26/17 [Rx] ALPRAZolam [Xanax 1 MG Tablet] 2 mg PO BID PRN 30 Days #120 tablet 11/07/17 [Rx] OxyCODONE Immed Rel [Roxicodone 10 MG] 10 mg PO TID 30 Days #90 tab 11/20/17 [Rx ] Oxycodone HCl/Acetaminophen [Percocet 10-325 mg Tablet] 1 each PO Q4H PRN 15 Days #90 tablet 11/21/17 [Rx] predniSONE [PredniSONE] 10 mg PO BIDWM 15 Days #54 tablet 12/06/17 [Rx] Allergies/Adverse Reactions: 3 Allergy/AdvReac Type Severity Reaction Status Date / Time codeine Allergy See Verified 12/03/17 11:11 Comments lorazepam [From Ativan] Allergy See Verified 12/03/17 11:11 Comments - Respiratory Orders Oxygen / L per min (2 L by NE PRN SOB/comfort) Smoking Cessation: Smoking cessation has been advised. For more information, call the [place] Tobacco Quit Line at 7-194-WYCO-NOW. - Lab Orders Lab Orders: Other (include drug levels w/frequency) (CMP, CBC, magnesium, and calcium in 1 week.) - Advance Directives Code Status: DNR-Arrest/Don't Intubate - Mobility Orders Ambulate - Rehabiliation Orders Rehab Potential: Fair Rehab Orders: Evaluation for Physical Therapy, Evaluation for Occupational Therapy - Diet Orders Renal CERTIFICATION: I certify that the transfer of the above named patient to an Extended Care Facility is necessary for the continuing treatment of the diagnosis listed. The above information is true and accurate reflection of patient's current condition. Confidential - Redisclosure prohibited without a patient's written consent.
[2017-12-06] MEDS ORDERED: predniSONE 20 MG TABLET PO SCH (17:00)
--- NOTE | 2017-12-06 17:41 | Palliative Progress Note ---
Date of Encounter: 12/06/17 Time of Encounter: 17:35 - Assessment and plan (1) Cancer associated pain Current Visit: Yes Status: Acute Assessment and plan: D/W Hospitalist - He is taking short acting Oxycodone around the clock and utilizing Tramadol for breakthrough pain. Since he is going to be agreeable to go to controlled environment, recommend beginning MS Contin 15 mg every 12 hours , Oxycodone 10 mg every4 hours for breakthrough pain, and discontinuing Toradol. Prescriptions done for ECF. (2) Goals of care, counseling/discussion Current Visit: Yes Status: Acute Assessment and plan: Patient agreeable to go to ECF - skilled for now and will convert to Hospice within the near future. Will be discharged today. (3) Squamous cell carcinoma of right lung Current Visit: Yes Status: Chronic (4) Bone metastases Current Visit: Yes Status: Chronic - Time Spent With Patient Total time spent is greater than 50% in coordination of care (as documented) at patient's floor/unit and/or counseling patient: - Subjective Interval history: Patient sleeping - awakens easily for assessment. States pain is not under good control. He is agreeable to ECF and plans to be discharge today. - Constitutional Vitals: Abnormal lab results RBC 2.96 M/mcL (4.19-5.50) L 12/06/17 05:07 Hgb 9.0 g/dL (12.9-16.9) L 12/06/17 05:07 Hct 28.4 % (37.5-50.1) L 12/06/17 05:07 RDW 16.7 % (11.5-14.5) H 12/06/17 05:07 Plt Count 103 K/mcL (140-400) L 12/06/17 05:07 Lymphocytes # 0.3 K/mcL (0.6-4.6) L 12/06/17 05:07 Platelet Estimate Decreased (Normal) L 12/05/17 03:46 VBG pH 7.27 pH Units (7.32-7.42) L 12/05/17 13:52 VBG pCO2 53 mmHg (41-51) H 12/05/17 13:52 VBG pO2 53 mmHg (25-50) H 12/05/17 13:52 Chloride 109 mEq/L (98-107) H 12/06/17 08:22 BUN 31 mg/dL (8-23) H 12/06/17 08:22 Creatinine 1.49 mg/dL (0.70-1.30) H 12/06/17 08:22 Est GFR ( Amer) 57 (> 60) L 12/06/17 08:22 Est GFR (Non-Af Amer) 47 (> 60) L 12/06/17 08:22 POC Glucose 119 (58-89) H 12/05/17 03:45 Calcium 10.5 mg/dL (8.6-10.3) H 12/06/17 08:22 Venous Ioniz Calcium 1.57 mmol/L (1.15-1.35) H 12/05/17 13:52 B-Natriuretic Peptide 146 pg/mL (Less than 100) H 12/03/17 11:59 Serum Total Protein 5.5 g/dL (6.4-8.9) L 12/04/17 05:12 Albumin 2.9 g/dL (3.5-5.7) L 12/04/17 05:12 Stool Occult Blood Positive (Negative) A 12/05/17 17:05 General appearance: Present: no acute distress - Respiratory Respiratory exam: Present: decreased breath sounds, CTAB - Cardiovascular Cardiovascular exam: Present: +S1, +S2 - GI/Abdominal GI/Abdominal exam: Present: normal bowel sounds, soft - Extremities Exam Extremities exam: Present: normal capillary refill, normal inspection - Neurological Exam Neurological exam: Present: alert, oriented X3, strengths equal and symetr throughout - Skin Skin exam: Present: dry, pallor, warm Palliative Quality Palliative Quality: Screen for Code Status: Yes, Screen for Goals of Care: Yes, Screen for Pain: Yes, If Pain Regimen Started, Initiate Bowel Regimen: NA, Screen for Nausea/Vomitting: Yes Code Status: 12/05/17 16:00 DNR [Resuscitation Status: Active] [RES] Routine Comment: Resuscitation Status: [id number] - Labs CBC & Chem 7: 12/06/17 05:07 12/06/17 08:22 Labs: Laboratory Results - last 24 hr 12/06/17 12/06/17 12/06/17 05:07 05:07 08:22 WBC 4.4 RBC 2.96 L Hgb 9.0 L Hct 28.4 L MCV 95.9 MCH 30.4 MCHC 31.7 RDW 16.7 H Plt Count 103 L MPV 10.2 Immature Gran % 1.1 Seg Neutrophils % 88.3 Lymphocytes % 5.6 Monocytes % 5.0 Eosinophils % 0.0 Basophils % 0.0 Neutrophils # 3.9 Lymphocytes # 0.3 L Monocytes # 0.2 Eosinophils # 0.0 Basophils # 0.0 Immature Plt Fraction 4.2 Sodium 139 140 Potassium 4.3 4.0 Chloride 110 H 109 H Carbon Dioxide 27 26 BUN 30 H 31 H Creatinine 1.52 H 1.49 H Est GFR ( Amer) 56 L 57 L Est GFR (Non-Af Amer) 46 L 47 L BUN/Creatinine Ratio 20 21 Glucose 106 H 100 Calculated Osmolality 295 297 Calcium 10.3 10.5 H Magnesium 1.7 1.6 Consult Discharge Plan - Plan Instructions: Lung Cancer (DC), Malnutrition (DC), Chronic Obstructive Pulmonary Disease (DC), Anemia (GEN) Additional Instructions: Discharge to [facility]. Will need repeat CMP, CBC, magnesium, and calcium checked in 1 week at SNF. Follow up to be determined at time of discharge from SNF. Referrals: Arvin Kang MD [Primary Care Provider] - Prescriptions: Morphine Sulfate SR (12 HR) [MS Contin] 1 tab PO Q12HR 7 Days #14 tab ALPRAZolam [Xanax 1 MG Tablet] 2 mg PO BID PRN 7 Days #14 tablet PRN Reason: Anxiety OxyCODONE Immed Rel [Roxicodone 10 MG] 10 mg PO Q4H PRN 7 Days #40 tab PRN Reason: cancer related pain predniSONE [PredniSONE] 10 mg PO BIDWM 15 Days #54 tablet
== END 2017-12-06 19:40 | DRG 190 ==
LOC: 2NENU 11:05 → EMEROO 11:05 → OBSVTOIN 17:24 → 2NENU 18:46
PROVIDERS: ADMIT Internal Medicine; ATTEND Internal Medicine